=== PATIENT | male | born 1995 | race Caucasian/White ===

== ENCOUNTER 2017-02-08 07:46 | Day surgery (SDC) | payer OTHER ==
[~2017-02-08 07:46] MED LIST: NO MEDICATION
[2017-02-08] MEDS ORDERED: DAILY MULTIPLE1 EAC2 PO (08:17)
== END 2017-02-08 14:00 ==
LOC: SHSC 07:46 → ORW 09:35 → PACU 11:07 → SHSC 11:54
PROC: 0HBV0ZZ Excision of Bilateral Breast, Open Approach (ICD-10-PCS; principal; 2017-02-08)
DX: N62 Hypertrophy of breast (principal); F10.10 Alcohol abuse, uncomplicated; F12.90 Cannabis use, unspecified, uncomplicated; J30.81 Allergic rhinitis due to animal (cat) (dog) hair and dander; Z91.048 Other nonmedicinal substance allergy status
CPT/HCPCS: J0131; J0690; J2250; J3010